=== PATIENT | female | born 1985 | race Caucasian/White ===

== ENCOUNTER 2023-03-16 14:36 | Outpatient (AMB) | payer MEDICARE, MEDICAID, SELFPAY ==
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
[2023-03-16 14:46] VITALS: BP 154/86; PULSE 98; RESP 17; O2SAT 96; BMI 29.3
== END 2023-03-16 15:47 | disposition home or self-care (01) ==
PROVIDERS: PCP Family Medicine; Visit Provider Psychiatry & Neurology Neurology
DX: G93.5 Compression of brain (principal); G44.86 Cervicogenic headache; R56.9 Unspecified convulsions; G47.00 Insomnia, unspecified
CPT/HCPCS: 99204

== ENCOUNTER → 2023-03-16 14:36 | Outpatient (BNVA) | payer MEDICARE, MEDICAID, SELFPAY | PROVIDERS: PCP Family Medicine; Visit Provider Psychiatry & Neurology Neurology | DX: G93.5 Compression of brain (principal); G47.00 Insomnia, unspecified; R51.9 Headache, unspecified; R56.9 Unspecified convulsions; M62.838 Other muscle spasm; G89.29 Other chronic pain | CPT/HCPCS: 99202 ==